=== PATIENT | male | born 1970 | race Caucasian/White ===

== ENCOUNTER → 2024-02-03 16:59 | Outpatient (REF) | payer BC, SELFPAY ==
[2024-02-03 19:40] LABS: % Basophils 1.3 % (0-2); % Eosinophils 3.8 % (0-6); % Immature Granulocytes 0.4 % (0-0.5); % Lymphocytes 29.4 % (20.5-51.1); % Monocytes 6.9 % (1.7-9.3); % Neutrophils 58.2 % (42.2-75.2); Absolute Basophils 0.1 10^3/uL (0-0.2); Absolute Eosinophils 0.2 10^3/uL (0-0.7); Absolute Lymphocytes 1.5 10^3/uL (1.2-3.4); Absolute Monocytes 0.4 10^3/uL (0.1-0.6); Hematocrit 43.3 % (39.0-52.0); Hemoglobin 13.7 g/dL (13.0-18.0); Mean Corp Hgb Conc. 31.6 g/dL (33.0-37.0); Mean Corpuscular Hgb 28.7 pg (27.0-31.0); Mean Corpuscular Volume 90.8 fL (80.0-94.0); Mean Platelet Volume 9.8 fL (7.4-10.4); Nucleated Red Blood Cells % 0 % (-); Platelet Count 222 10^3/uL (130-400); Red Blood Cell Count 4.77 10^6/uL (4.70-6.10); Red Cell Dist. Width 13.4 % (11.5-14.5); White Blood Cell Count 5.2 10^3/uL (4.8-10.8)
[2024-02-03 19:42] LABS: ALT (SGPT) 25 U/L (0-50); AST (SGOT) 25 U/L (17-59); Albumin 4.2 g/dl (3.5-5.0); Alkaline Phosphatase 76 U/L (38-126); Blood Urea Nitrogen 18 mg/dl (9-20); Calcium 9.1 mg/dl (8.4-10.2); Carbon Dioxide 27 mmol/L (22-30); Chloride 102 mmol/L (98-107); Glucose 105 mg/dl (70-99); HDL Cholesterol 28 mg/dl; LDL Cholesterol, Calculated 81 mg/dl; Potassium 3.8 mmol/L (3.5-5.1); Sodium 138 mmol/L (135-145); Total Bilirubin 0.8 mg/dl (0.2-1.3); Total Cholesterol 125 mg/dl (50-199); Total Protein 7.3 g/dl (6.3-8.2); Triglyceride 83 mg/dl (10-149); Very Low Density Lipoprotein 16 mg/dl (0-30); eGFR > 60.00
[2024-02-03 20:13] LABS: PSA, Total - Screen 0.61 ng/ml (0.0-4.0); TSH 1.39 uIU/ml (0.47-4.68)
[2024-02-03 20:14] LABS: Estradiol 46.6 pg/ml (5.4-66)
[2024-02-04 08:42] LABS: Glycohemoglobin (HgbA1c) 5.3 % (4.0-5.6)
[2024-02-06 03:55] LABS: % Free Testosterone 2.2 % (1.6-2.9); Free Testosterone 164 pg/mL (47-244); Sex Hormone Binding Globulin 27 nmol/L (19-76); Total Testosterone 741 ng/dL (300-890)
== END ==
LOC: CLAB 16:59
PROVIDERS: ATTENDING PHYSICIAN Family Medicine
DX: Z00.00 Encounter for general adult medical examination without abnormal findings (principal); E29.1 Testicular hypofunction; R73.03 Prediabetes
CPT/HCPCS: 36415; 80053; 80061; 82670; 83036; 84270; 84402; 84403; 84443; 85025; G0103

== ENCOUNTER → 2024-09-19 06:56 | Outpatient (REF) | payer BC, SELFPAY | LOC: HWRAD 06:56 | PROVIDERS: ATTENDING PHYSICIAN Family Medicine | DX: M25.569 Pain in unspecified knee (principal); M25.511 Pain in right shoulder | CPT/HCPCS: 73030; 73564 ==

== ENCOUNTER 2024-12-16 21:17 | Emergency (ER) | payer BC, SELFPAY ==
[2024-12-16 22:06] VITALS: BP 161/90
--- NOTE | 2024-12-16 23:10 | ED.GENMED ---
History of Present Illness
General
Chief Complaint: Allergic Reaction
Source: patient
Exam Limitations: none
Time Seen by Provider: 12/16/24 23:14
History of Present Illness
History of Present Illness:
See MDM
Past History
Past History
ED Past Medical History: None; Negative Asthma, HTN, Hypercholesterolemia or NIDDM
ED Past Surgical History: Other (Gastric bypass)
Social History
Tobacco: Non-smoker
Alcohol: None
Personal:
Living: with family
Phy Exam
Physical Exam
Physical Exam:
See MDM
Course
Orders/Labs/Results
Orders:
Orders
12/16/24 23:09
Dexamethasone Pf [Decadron] 10 mg PO NOW STA
Famotidine [Pepcid] 20 mg PO NOW STA
Vital Signs
Initial and Last Documented VS:
Initial Vital Signs
Temp Pulse Resp BP Pulse Ox
98.4 F 75 20 161/90 96
12/16/24 22:06 12/16/24 22:06 12/16/24 22:06 12/16/24 22:06 12/16/24 22:06
Last Documented Vital Signs
Temp Pulse Resp BP Pulse Ox
98.4 F 75 20 161/90 96
12/16/24 22:06 12/16/24 22:06 12/16/24 22:06 12/16/24 22:06 12/16/24 22:06
MDM/Problems Addressed
Differential Diagnosis Includes:
HPI and MDM Narrative:
54-year-old male presenting for evaluation of allergic reaction. Patient recently finished a course of Tamiflu. He noticed swelling of his lips this morning. While in the emergency department, patient now noticing swelling around his neck. He
denies trouble breathing or trouble swallowing. He did take Benadryl earlier today.
On exam, he is well-appearing nontoxic. He does have mild erythema and rash around his lips and face and around his neck. He has no stridor. Posterior pharynx is clear. Will start Decadron and Pepcid and discussed possible allergic reaction to
Tamiflu
Physical exam
General: Well appearing and non-toxic
HEENT: protecting airway. Posterior pharynx clear
Neck: No stridor, supple
CV: No evidence of cyanosis
Resp: No accessory muscle use
Abd: Non-distended
Extremities: No deformities
Neuro: alert
Psych: Normal affect
Skin: Mild urticarial rash to face and trunk of neck
Problems Addressed including Acute and Chronic Conditions affecting care:
1. Allergic reaction
Acuity: acute
Prognosis: stable
Details: Will start Decadron and Pepcid. No evidence of anaphylaxis
Differential Diagnosis (but not limited to): Allergic reaction, adverse reaction to medicine
Drug therapy (if applicable): OTC meds, please see d/c instruction regarding Rx drugs
Amount and/or Complexity of Data Reviewed
Clinical info obtained from: Patient
External data reviewed: N/A
Labs I independently reviewed (but not limited to): N/A
Radiology: N/A
Pulse Ox: not hypoxic
EKG independently reviewed: N/A
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
Critical Care: N/A
Risk of Complication:
Social Determinants of health: Good social support
Discussed with other providers: N/A
Escalation of Care includes Admit/Obs: After being observed in the Emergency Department, pt stable for discharge.
Occasional wrong word or 'sound a like' substitutions may have occurred due to the inherent limitations of voice recognition software. Read the chart carefully and recognize, using context, where substitutions have occurred.
*Critical Care Note
Total Time (30-74mins, 75-104mins- exclusive of procedures): Not Applicable
ED Attending Note
-
Portions of this chart may have been created with voice recognition software.� Occasional wrong word or��sound alike� substitutions may have occurred due to the inherent limitations of voice recognition software.
Discharge Plan
Departure
Patient Disposition: Home (Routine Discharge)
Date of Disposition: 12/16/24
Time of Disposition: 23:10
Patient with high blood pressure during this ER visit?: Yes
Discharge Problem:
Allergic reaction
Instructions: BLOOD PRESSURE
Prescriptions:
New
prednisone 20 mg tablet
40 mg PO DAILY Qty: 10 0RF
famotidine [Pepcid] 20 mg tablet
20 mg PO BID Qty: 10 0RF
No Action
cephalexin 500 MG capsule
500 mg PO QID Qty: 28 0RF
ferrous sulfate 325 mg (65 mg iron) Capsule, Extended Release
325 mg PO
hydrochlorothiazide 12.5 mg Tablet
12.5 mg PO DAILY
Activity Restrictions/Additional Instructions:
Please return for any worsening symptoms.
You may return at any time if you have further concerns.
It is uncertain whether or not this is an allergic reaction to the Tamiflu.
Please follow up with your doctor at the first available appointment, preferably this week.
Thank you for choosing [facility].
Interventions
Interventions:
*Risk Screen - Suicide Last Done: 12/16/24 22:06
*General Assessment Last Done: 12/16/24 22:06
*Neglect/Abuse Screening Last Done: 12/16/24 22:06
ED- Fall Risk Assessment Last Done: 12/16/24 22:06
*ED COVID-19 Vaccine History Last Done: 12/16/24 22:06
ED- Cardiac Assessment Last Done: 12/16/24 23:10
ED- Pulmonary Assessment Last Done: 12/16/24 23:10
ED-Skin Assessment Last Done: 12/16/24 23:10
Discharge Date and Time
Print Language: SERBIAN
[2024-12-16] MEDS: PEPCID 20 MG PO (23:21)
[2024-12-16] MEDS: DECADRON 10 MG PO (23:21)
== END 2024-12-16 23:25 | disposition home or self-care (01) ==
LOC: EMR 21:17
PROVIDERS: EMERGENCY PHYSICIAN Student in an Organized Health Care Education/Training Program; FAMILY PHYSICIAN Family Medicine
DX: T78.40XA Allergy, unspecified, initial encounter (principal); X58.XXXA Exposure to other specified factors, initial encounter; Z98.84 Bariatric surgery status
CPT/HCPCS: 99282